=== PATIENT | female | born 1950 | race Caucasian/White ===

== ENCOUNTER → 2016-05-15 | Outpatient (CLI) | payer MEDICARE, BC ==
--- NOTE | 2016-05-15 11:55 | RADRPT ---
PROCEDURE: XR right knee. CLINICAL INDICATION: Knee pain. TECHNIQUE: AP weightbearing, lateral weight bearing and sunrise views are available for review. COMPARISON: No comparison available FINDINGS: There is a total knee replacement. There is no evidence of loosening of the prosthesis. The osseous structures are normal in mineralization, architecture and alignment No acute fracture or dislocation is seen.No osseous lesions are identified. The soft tissues are unremarkable . IMPRESSION: Unremarkable total knee replacement. RPTAT: HGDB .Maximo Moy MD, Date Time Electronically viewed and signed by .Maximo Moy MD, on 05/15/2016 11:55 .B/
--- NOTE | 2016-05-15 11:56 | RADRPT ---
PROCEDURE: XR right tibia / fibula. CLINICAL INDICATION: Pain. TECHNIQUE: AP and lateral views are available for review. COMPARISON: No comparison available FINDINGS: There is a total knee replacement. There is no evidence of loosening of the prosthesis. The osseous structures are normal in mineralization, architecture and alignment No acute fracture or dislocation is seen.No osseous lesions are identified. The soft tissues are unremarkable . IMPRESSION: Unremarkable total knee replacement. Otherwise unremarkable tibia and fibula RPTAT: HGDB .Maximo Moy MD, Date Time Electronically viewed and signed by .Maximo Moy MD, on 05/15/2016 11:56 .B/
== END | disposition home or self-care (01) ==
LOC: HKI 09:02
PROVIDERS: ATTEND Orthopaedic Surgery
DX: T84.092D Other mechanical complication of internal right knee prosthesis, subsequent encounter (principal); T84.84XD Pain due to internal orthopedic prosthetic devices, implants and grafts, subsequent encounter; M25.561 Pain in right knee; M84.361D Stress fracture, right tibia, subsequent encounter for fracture with routine healing; Z96.651 Presence of right artificial knee joint
CPT/HCPCS: 73562; 73590; G0463

== ENCOUNTER → 2016-08-14 | Outpatient (CLI) | payer MEDICARE, BC | END | disposition home or self-care (01) | LOC: HKI 08:52 | PROVIDERS: ATTEND Orthopaedic Surgery | DX: T84.092A Other mechanical complication of internal right knee prosthesis, initial encounter (principal); T84.84XA Pain due to internal orthopedic prosthetic devices, implants and grafts, initial encounter; Y83.8 Other surgical procedures as the cause of abnormal reaction of the patient, or of later complication, without mention of misadventure at the time of the procedure | CPT/HCPCS: 20610; G0463 ==

== ENCOUNTER → 2016-09-11 | Outpatient (CLI) | payer MEDICARE, BC ==
--- NOTE | 2016-09-11 13:57 | RADRPT ---
PROCEDURE: Limited x-ray of both lower extremities. CLINICAL INDICATION: Bilateral leg pain. TECHNIQUE: Single frontal view of both lower extremities was obtained from the hips to the calves. COMPARISON: Right knee radiographs dated 05/15/2016. FINDINGS: There are mild degenerative changes of the hips with osteophytes noted. There is a right knee total arthroplasty which appears satisfactory. There are moderate degenerative changes of the left knee with osteophytes and joint space narrowing. IMPRESSION: 1. Mild degenerative changes of the hips. 2. Right knee total arthroplasty. 3. Moderate degenerative changes of the left knee. RPTAT: QQ .Jose D Interiano MD, MD Date Time Electronically viewed and signed by .Jose D Interiano MD, MD on 09/11/2016 13:57 .R/
== END | disposition home or self-care (01) ==
LOC: HKI 09:11
PROVIDERS: ATTEND Orthopaedic Surgery
DX: Z01.818 Encounter for other preprocedural examination (principal); T84.092A Other mechanical complication of internal right knee prosthesis, initial encounter; T84.84XA Pain due to internal orthopedic prosthetic devices, implants and grafts, initial encounter; Z96.651 Presence of right artificial knee joint; Y83.8 Other surgical procedures as the cause of abnormal reaction of the patient, or of later complication, without mention of misadventure at the time of the procedure; M25.561 Pain in right knee
CPT/HCPCS: 77073; G0463

== ENCOUNTER 2016-09-17 07:00 | Inpatient (IN) | payer MEDICARE, BC ==
[2016-09-17] VITALS (22 sets, daily range): BP systolic 108–162; BP diastolic 60–85; PULSE 58–82; RESP 8–20; Ht 170.2 cm; Wt 94.0 kg
[~2016-09-17] VITALS: Ht 170.2 cm; Wt 94.0 kg
[2016-09-17] MEDS ORDERED: CELECOXIB 400 MG PO X1 DOSE PO ONE (11:00)
[2016-09-17] MEDS ORDERED: TRANEXAMIC ACID in SOD CHLORIDE 0.9% 100 ML FOR INTRAOP IVPB ONE (11:00)
[2016-09-17] MEDS ORDERED: BUPIVACAINE LIPOSOME/PF 266 MG/20 ML VIAL INFIL ONE (11:00)
[2016-09-17] MEDS ORDERED: traMADOL 50 MG TAB X 1 DOSE PO ONE (11:00)
[2016-09-17] MEDS ORDERED: LACTATED RINGER'S 1,000 ML IV SCH (11:00)
[2016-09-17] MEDS ORDERED: PREGABALIN 300 MG PO X1 PO ONE (11:00)
[2016-09-17] MEDS ORDERED: TRANEXAMIC ACID in SOD CHLORIDE 0.9% 100 ML ON CALL TO OR IV ONE (11:00)
[2016-09-17] MEDS ORDERED: CEFAZOLIN 2GM/50 ML (PMX) 50 ML X1 BEFORE INCISION IVPB ONE (11:00)
[2016-09-17] MEDS ORDERED: oxyCODONE (CR) 10 MG TAB [oxyCONTIN] X1 DOSE PO ONE (11:30)
[2016-09-17] MEDS: traMADol 50 MG TAB PO SCH ×2 (12:00→18:00)
[2016-09-17] MEDS ORDERED: EXPAREL NOTE (BUPIVICAINE LIPOSOMAL) XX SCH (12:30)
[2016-09-17] MEDS ORDERED: PAIN COCKTAIL - VANCOMYCIN IRR ONE ×7 (12:30)
--- NOTE | 2016-09-17 12:57 | HPN ---
Date/Time of Note Date/Time of Note DATE: 09/17/16 TIME: 12:57 Interval H&P Admission Note Pt. seen H&P reviewed: No system changes No changes from H&P on 09/08/16 by BRYANT Whitney MD September 17, 2016 12:57
[2016-09-17] MEDS ORDERED: MIDAZOLAM 1 MG/ML 2 ML INJ ONE (13:18)
[2016-09-17] MEDS ORDERED: morphine SULFATE/PF (10 MG/10 ML) INJ ONE (13:18)
[2016-09-17] MEDS ORDERED: POLYMYXIN B 500000 UNIT INJ ONE (13:22)
[2016-09-17] MEDS ORDERED: TOBRAMYCIN 1.2 GM POWDER ONE (13:23)
[2016-09-17] MEDS ORDERED: BACITRACIN 50000 UNITS INJ ONE (13:29)
[2016-09-17] MEDS ORDERED: hydrALAzine 20 MG INJ IV PRN ×2 (14:00→19:00)
[2016-09-17] MEDS ORDERED: ONDANSETRON 4 MG INJ IV PRN ×3 (14:00→19:00)
[2016-09-17] MEDS ORDERED: NALOXONE (0.4 MG/ML) INJ IV PRN (14:00)
[2016-09-17] MEDS ORDERED: DIPHENHYDRAMINE 50 MG INJ IV PRN ×2 (14:00→19:00)
[2016-09-17] MEDS ORDERED: LABETALOL HCL 20MG INJ IV PRN ×2 (14:00→19:00)
[2016-09-17] MEDS ORDERED: FENTAnyl 50 MCG/ML VIAL IV PRN ×2 (14:00→19:00)
[2016-09-17] MEDS: VANCOMYCIN 1 GM INJ ONE ×2 (14:55→15:22)
[2016-09-17] MEDS ORDERED: MINERAL OIL LIGHT 10 ML VIAL ONE (15:08)
--- NOTE | 2016-09-17 17:02 | RADRPT ---
PROCEDURE: Intraoperative imaging of the right knee with fluoroscopy. CLINICAL INDICATION: Right knee pain. Intraoperative. TECHNIQUE: 9 images of the right knee were obtained in the operating room with an image intensifie r. No radiologist was in attendance. 0.3 minutes of fluoroscopy time was used. COMPARISON: 09/11/2016. FINDINGS: Images demonstrate revision of the right knee total arthroplasty. IMPRESSION: 1. Intraoperative imaging of the right knee. RPTAT: QQ .Jose D Interiano MD, MD Date Time Electronically viewed and signed by .Jose D Interiano MD, MD on 09/17/2016 17:02 .R/
[2016-09-17] MEDS ORDERED: CEFAZOLIN 1 GM INJ ONE (17:05)
[2016-09-17] MEDS ORDERED: PROPOFOL 20 ML ONE (17:05)
[2016-09-17] MEDS ORDERED: ROCURONIUM 50 MG INJ ONE (17:05)
[2016-09-17] MEDS ORDERED: LIDOCAINE 2% (SDV) 5 ML INJ ONE (17:05)
[2016-09-17] MEDS ORDERED: NEOSTIGMINE 3 MG/3 ML SYRINGE ONE (17:06)
[2016-09-17] MEDS ORDERED: GLYCOPYRROLATE 0.4 MG INJ ONE (17:06)
[2016-09-17] MEDS ORDERED: ONDANSETRON 4 MG INJ ONE (17:10)
[2016-09-17] MEDS ORDERED: DIPHENHYDRAMINE 25 MG CAP PO PRN (17:30)
[2016-09-17] MEDS ORDERED: oxyCODONE 5 MG TAB PO PRN (17:30)
[2016-09-17] MEDS ORDERED: ASPIRIN (EC) 325 MG TAB PO ONE (17:30)
[2016-09-17] MEDS ORDERED: BISACODYL 10 MG SUPP PR PRN (17:30)
[2016-09-17] MEDS ORDERED: NACL 0.9% 3 ML SYG IV SCH (17:30)
[2016-09-17] MEDS ORDERED: MAGNESIUM HYDROXIDE 30ML CUP PO PRN (17:30)
[2016-09-17] MEDS ORDERED: NA PHOSPHATE/BIPHOS 133 ML ENEMA PR PRN (17:30)
--- NOTE | 2016-09-17 17:30 | OPR ---
Date/Time of Note Date/Time of Note DATE: 09/17/16 TIME: 17:29 Operative Report Free Text/Dictation Dictation # [id number] Procedure Date: September 17, 2016 Preoperative Diagnosis Mechanical complications Right TKA Postoperative Diagnosis Same Operation Performed Revision Right TKA Surgeon: BRYANT MONROY MD neurosurgical physician assistant: HAMZAH SALINAS PA-C Anesthesia: general, spinal Anesthesiologist: OVIDIO VAUGHN MD Tourniquet Time: 112 minutes Estimated Blood Loss: 50 - 100 ml's Specimens Aerobic and anaerobic cultures x 2 Tubes/Drains Hemovac x 1 Complications: None Pt Condition Post Procedure: stable Disposition: PACU BRYANT MONROY MD September 17, 2016 17:30
[2016-09-17 17:47] LABS: HEMATOCRIT 33.8 % (37.0-47.0); HEMOGLOBIN 11.2 g/dl (12.0-16.0)
[2016-09-17] MEDS: CEFAZOLIN 2 GM/50 ML (PMX) 50 ML IVPB SCH (17:55)
[2016-09-17] MEDS ORDERED: ALPRAZOLAM 0.5 MG TAB PO PRN (18:00)
--- NOTE | 2016-09-17 18:04 | CONS ---
DATE OF ADMISSION: 09/17/2016 DATE OF CONSULTATION: 09/17/2016 POSTOPERATIVE MEDICAL CONSULTATIVE NOTE Thank you very much for allowing me to evaluate the above patient who just underwent total right kne e revision. HISTORICAL EVENTS: As you well know, she did have a total knee replacement 1 year ago and subsequen t to this ended up with any stress fracture and now requiring surgery for alignment and increasing p ain. In recovery, she is comfortable without cough, wheezing, shortness of breath, nausea, vomiting , abdominal or chest pain. PAST MEDICAL HISTORY INCLUDES: 1. Ankylosing spondylitis. 2. History of plantar fasciitis. 3. History of hiatal hernia. 4. History of Graves' disease 5. History of colon polyps 6. vitamin D deficiency. 7. Hypertension. 8. Right knee arthroscopic surgery 08/2012. 9. 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 section x2 11. Arthroscopic surgery involving her right shoulder. SOCIAL HISTORY: nursing secretary, occasionally drinks alcohol, does not smoke. MEDICATIONS: 1. Xanax 0.5 b.i.d. p.r.n. 2. Prilosec 20 mg per day. 3. Chlorthalidone 25 mg per day. ALLERGIES: NONE. PHYSICAL EXAMINATION: GENERAL: Overweight female in no acute distress. VITAL SIGNS: BP 122/80, pulse 70, respirations are 20, she was afebrile. EYES: Extraocular muscles were full. NOSE, MOUTH, AND THROAT: Normal. NECK: Supple. There was no jugular venous distention, thyroid enlargement or adenopathy. LUNGS: Clear. HEART: Rhythm regular, no murmur. No third or fourth sound. ABDOMEN: Nontender. Liver and spleen were not palpable. No masses or tenderness were noted. EXTREMITIES: No edema. NEUROLOGIC: No lateralizing weakness. IMPRESSION: 1. Stable postop right knee revision. 2. History of hypertension, blood pressure will be monitored. No need for thiazide diuretic now. 3. Will evaluate daily for signs and symptoms of thromboembolic disease, despite appropriate decisi on deep venous thrombosis prophylaxis. 4. Anxiety. This will be monitored and will give Xanax as needed b.i.d. 0.5 mg p.r.n. Dictated By: CHAI FRYE/YUMI Conf#: [id number] DID#: [id number]
[2016-09-17 18:13] LABS: CALCIUM 8.2 mg/dl (8.4-10.2); CREATININE 0.84 mg/dl (0.44-1.00); POTASSIUM 2.9 mmol/L (3.5-5.1)
[2016-09-17] MEDS ORDERED: POTASSIUM CHLORIDE (SR) 20 MEQ TAB PO STA (18:50)
--- NOTE | 2016-09-17 18:52 | RADRPT ---
PROCEDURE: XR Knee. CLINICAL INDICATION: Right knee pain. Postoperative evaluation TECHNIQUE: 3 views of the right knee were obtained. The images reviewed on a PACS workstation. COMPARISON: 09/11/2016 FINDINGS: A right total knee arthroplasty is seen. The femoral and tibial arthroplasty stems are increased in length compared to the prior examination. A drain is seen with skin otto in place. Multiple ra diopaque beads are seen in the suprapatellar bursa. No acute fracture or dislocation is seen. IMPRESSION: Right total knee arthroplasty with acute postoperative changes as described above. RPTAT: HPNM Physician Haley Date Time Electronically viewed and signed by Physician Haley on 09/17/2016 18:51 /
[2016-09-17] MEDS: LACTATED RINGER'S 1,000 ML IV SCH (19:02)
--- NOTE | 2016-09-17 19:13 | OPR ---
DATE OF OPERATION: 09/17/2016 PREOPERATIVE DIAGNOSIS: Mechanical complications right total knee arthroplasty. POSTOPERATIVE DIAGNOSIS: Mechanical complications right total knee arthroplasty. OPERATION PERFORMED: Revision right total knee arthroplasty. SURGEON: Bryant Harris MD. FORMING TUBE SELECTOR: MENA Coffey. COMPONENTS USED: DePuy TC3 size 3 femoral component with a +2 five-degree adapter bolt, 12 x 150 mm femoral stem, 8 mm medial distal augment, size 2.5 MBT revision tibial tray with a 47 mm metaphyseal sleeve and a 12 x 75 mm stem, 12.5 mm polyethylene insert. ANESTHESIA: Spinal plus general endotracheal intubation plus periarticular injection. ANESTHESIOLOGIST: Dr. Harris. TOURNIQUET TIME: 112 minutes. ESTIMATED BLOOD LOSS: 50 mL. INTRAVENOUS FLUIDS: 1800 mL crystalloid. SPECIMENS: Aerobic and anaerobic culture of joint fluid x2. DRAINS: Hemovac x1. COMPLICATIONS: None. DISPOSITION: The patient tolerated the procedure well and was taken to the recovery room in stable condition. INDICATIONS: The patient is a 65-year-old woman who previously had a right total knee arthroplasty last year who had persistent pain. Imaging showed malposition components with a Veress femoral component. She complained of the deformity and pain, and I felt that she would require revision. Risks, benefits , alternatives of the procedure were explained in detail to the patient. I explained the risks to include but not be limited to bleeding and possible need for blood transfusion, infection, pain, stiffness, neurovascular injury, possible numbness, weakness, and/or paralysis anywhere from the knee down to the toes, fracture, instability, dislocation, wear and/or loosening of the prosthesis, need for revision at a later date, wound healing problems, blood clots, pulmonary embolism, and anesthetic complications such as heart attack, stroke, GI bleed, pneumonia and/or . Ample time was allowed for the patient to ask questions, all of which were addressed and answered. She understood the risks involved and wished to proceed. Informed consent was signed prior to the procedure. DESCRIPTION OF PROCEDURE: The right knee was initialed with a marking pen in the preoperative holding area to identify the correct operative site. The patient was then brought to the operating room and transferred from the [facility] to the operating table where she was administered a spinal anesthetic and then anesthetized and intubated. Vieyra catheter was placed. Timeout was performed to confirm the right side was the correct operative site. She was given 1 gram of intravenous vancomycin and 2 grams of intravenous Ancef within 1 hour prior to the incision. A tourniquet was placed on right proximal thigh. The right knee and lower extremity were prepped and draped in the usual sterile fashion. The right lower extremity was elevated and exsanguinated with the Esmarch tourniquet, and the proximal thigh tourniquet was inflated to 300 mmHg. The knee was flexed. The previous midline incision was incised and extended proximally and distally. This was carried down to subcutaneous tissue and fat with sharp dissection. Limited medial and lateral flaps were raised. A medial parapatellar arthrotomy was performed. Synovial fluid was normal in color and consistency and swabbed for aerobic and anaerobic culture x2. The patella was translated laterally and the knee flexed. The polyethylene insert was removed from the tibia. A medial release was performed at the joint line to the mid coronal plane. The femoral and tibial components were well fixed. Osteotomes were used to free up the bone cement interface on the femur which was then able to be removed and the tibia was removed in a similar fashion with osteotomes. The distal femur remained well preserved with intact medial and lateral condyles. The proximal tibia remained in good condition as well. The patellar component appeared well fixed and I decided to leave this alone. At this point , the tibia was subluxed anteriorly. Retractors were placed around the tibia, and I reamed the tibia up to a size 12, getting a good bite and then broached up to a size 47, getting a good bite and sat flush with the proximal tibia. A cleanup osteotomy was made on top of the sleeve with the oscillating saw and the tibia was sized to be a 2.5. The trial 2.5 tibia with an MBT tray with a 47 metaphyseal sleeve trial and a 12 x 75 stem were impacted in the tibia. The extension gap was checked and accommodated the 12.5 spacer block. At this point , the femur was sized to be a 3. The femoral canal was opened, and the PCL had been released. I reamed the femoral canal up to a size 12. The 150 trial stem was placed into position and then the distal cutting block was pinned into place for a 5-degree valgus cut. There was a defect medially that required an 8 mm augment. Laterally, a cleanup osteotomy was made with the oscillating saw. I then placed the knee at 90 degrees and tensed the knee with 2 laminar spreaders and marked the transepicondylar axis which lined up with the tibial cutoff guide, brought up with the knee, flexed it 90 degrees and tensed with 2 lamina spreaders. At this point, the size 3 TC3, 4-in-1 cutting block was pinned into place with a 12.5 spacer block at 90 degrees and pinned in proper rotation which was in line with the line I marked for the transepicondylar axis. Anterior and posterior chamfer cuts were made with the oscillating saw. I then cut out the box for the TC3 and then trialed with a size 3 TC3 femur with a 12 x 150 stem with a +2 five-degree adapter bolt. The 12.5 insert was placed in position. The knee came to full extension. I had to perform an extensive medial release to get the knee to full extension and to be neutral. Upon going to full extension, I could feel a small pop and C-arm imaging showed the tip of the medial epicondyle avulsed off. However, the knee was quite stable. The knee was taken through range of motion with the foot on my abdomen and axial loading. There was no tendency for the knee to flex. Suggest the knee was in full extension. The knee was able to be flexed to 125 degrees with good patellar tracking with no lateral tilt or subluxation. No varus or valgus instability. C-arm imaging showed the components to be in good position. At this point, the trial components were removed. The real components were opened and assembled on the back table. Three bags of cement were mixed with vancomycin mixed into it. Once in the doughy stage, the real components were cemented into place. Please note prior to cementing, the knee had been irrigated with antibiotic saline pulsatile lavage. The knee was held in full extension with a 12.5 insert. Once the cement was completely hardened, the trial liner was removed. The real polyethylene insert was opened and placed in the tibia and reduced on the femur. There was good hemostasis. I placed a 6.5 screw in the medial epicondyle tip, but when I tightened this down, the knee wanted to go into varus. I took it out, the knee was stable and came to neutral position. I felt that I would leave this as is as this was serving as the completion of the medial release. At this point, the knee was irrigated with Betadine saline and antibiotic saline pulsatile lavage. Stimulan beads mixed with vancomycin and tobramycin were mixed and placed in the knee joint. A Hemovac drain was placed in the deep portion of the wound and brought out the anterolateral thigh. The arthrotomy was closed with interrupted Ethibond and then a running #2 Stratafix. The subcutaneous layer was irrigated and closed with 2-0 Stratafix, 3-0 Vicryl and otto on the skin. The drain was secured with 3-0 nylon. Sponge and needle counts correct at the end of case. The wound was covered with silver Mepilex and wrapped in sterile cast padding and Ramy wrap and bias dressing. The patient was awakened, extubated, and taken to the recovery room in stable condition. Dictated By: BRYANT ZAVALETA/YUMI Conf#: [id number] DID#: [id number] MTDSindy
[2016-09-17] MEDS: PREGABALIN 50 MG CAP PO SCH (20:19)
[2016-09-17] MEDS ORDERED: TRANEXAMIC ACID 940 MG in SOD CHLORIDE 0.9% 100 ML IVPB ONE ×2 (20:30→23:30)
--- NOTE | 2016-09-17 21:37 | PN ---
Date/Time of Note Date/Time of Note DATE: 09/17/16 TIME: 21:35 Assessment/Plan Lines/Catheters IV Catheter Type (from Nrsg): Saline Lock Assessment/Plan Assessment/Plan Stable in PACU, s/p revision right TKA -continue antibiotics until final culture results -pain meds as needed -ASA/SCDs for DVT prophylaxis -OOB with PT -check AM labs -monitor drain -d/c sr in AM XR of the right knee is pending at this time Subjective 24 Hr Interval Summary Stable in PACU. Drowsy from anesthesia. Denies pain. Moving all extremities. Exam/Review of Systems Vital Signs Vitals Vital Signs Date Time Temp Pulse Resp B/P Pulse Ox O2 Delivery O2 Flow Rate FiO2 09/17/16 21:24 98.2 63 20 137/63 98 09/17/16 20:21 Nasal Cannula 2.0 Exam Free Text/Dictation Hemovac: minimal Dressing dry Incision clean, dry, and intact without redness or drainage Thigh soft 5/5 Quadriceps, Tibialis Anterior, EHL, Gastroc, Soleus, Peroneals Normal sensation Palpable DT/PT, CR <2 sec No distal edema Results Result Diagram: 09/17/16 1736 09/17/16 1736 HAMZAH SALINAS PA-C September 17, 2016 21:36
--- NOTE | 2016-09-17 21:42 | PDOCDIS ---
Discharge Instructions DIAGNOSIS Discharge Diagnosis: s/p revision right TKA CONDITION Patient Condition: Good HOME CARE INSTRUCTIONS: Diet Instructions: Regular ACTIVITY: Activity Restrictions: Slowly Increase Activity Rest between Activity Avoid heavy lifting Do not operate Machinery Do not operate Power Tool Avoid Heavy Housework Keep Limb Elevated FOLLOW UP/APPOINTMENTS Appointments follow up in the office on 09/30/16 OTHER ORDERS: Other Orders: S/P revision TKA Physical Therapy: Three times per week at home x 2 weeks Daily in Rehab/SNF WB STATUS: WBAT 1. Strengthening exercises for both upper and un-operated lower extremities. 2. Gait training with front wheeled walker 3. Active range of motion exercises to operative knee. 4. When not working on knee range of motion exercises, distal towel roll under operative ankle/distal calf to promote full extension. 5. DO NOT PUT ANYTHING BEHIND OPERATIVE KNEE!!! 6. Quadriceps and hamstring strengthening. 7. May switch to cane in contra lateral hand 6 weeks after surgery. 8. Physical Therapy can open case if nursing is not available. 9. Use Ice Machine as instructed from date of surgery while at rest 3X/day. 10. Patient requires mobile SCDs to reduce risk of developing DVT following TKA. Patient will use the mobile SCDs for 30 days postoperatively. Bathing assistance by home health aide twice weekly if Medicare patient. Occupational Therapy: Evaluation for assistive devices and ADL training. Wound Care: Keep incision dry & covered with Tegaderm until first visit with Dr. Harris Anticoagulation Orders: Enteric Coated Aspirin 325 mg po bid x 6 weeks from date of surgery Follow-up:Call for an appointment with Dr. Harris in 1 week after discharged from hospital at DME Orders: DONYA, 3-in-1 Commode, Polar ice machine, Mobile SCDs HAMZAH SALINAS PA-C September 17, 2016 21:42
[2016-09-17] MEDS ORDERED: PREG50CA PO (21:43)
[2016-09-17] MEDS ORDERED: PANT40TA4 PO (21:43)
[2016-09-17] MEDS ORDERED: OXYC-481 PO (21:43)
[2016-09-17] MEDS ORDERED: ASPI325T32 PO (21:43)
[2016-09-17] MEDS ORDERED: TRAM50TA2 PO (21:43)
[2016-09-17] MEDS: DOCUSATE SODIUM 100 MG CAP PO SCH (21:55)
[2016-09-17] MEDS: PANTOPRAZOLE (EC) 40 MG TAB PO SCH (21:56)
[2016-09-18] MEDS: HYDROmorphONE 1 MG/ML SYG IV PRN (00:22)
[2016-09-18 00:30] VITALS: BP 104/62; PULSE 63; RESP 16
[2016-09-18] MEDS: CEFAZOLIN 2 GM/50 ML (PMX) 50 ML IVPB SCH ×3 (01:21→17:49)
[2016-09-18] MEDS: LACTATED RINGER'S 1,000 ML IV SCH ×3 (01:21→16:52)
[2016-09-18 05:26] LABS: HEMOGLOBIN 10.9 g/dl (12.0-16.0)
[2016-09-18] MEDS: PANTOPRAZOLE (EC) 40 MG TAB PO SCH ×2 (05:43→17:48)
[2016-09-18] MEDS: traMADol 50 MG TAB PO SCH ×4 (05:43→17:48)
[2016-09-18 05:49] LABS: CREATININE 0.8 mg/dl (0.44-1.00)
[2016-09-18 05:50] LABS: CALCIUM 8.4 mg/dl (8.4-10.2)
[2016-09-18 07:00] VITALS: BP 121/82; RESP 20
[2016-09-18 08:02] LABS: ADD UMIC YES; URINE BILIRUBIN (Dip) NEGATIVE (NEGATIVE); URINE BLOOD (Dip) 1+ (NEGATIVE); URINE COLOR LT. YELLOW (YELLOW); URINE GLUCOSE (Dip) NEGATIVE (NEGATIVE); URINE KETONES (Dip) NEGATIVE (NEGATIVE); URINE LEUKOCYTE ESTERASE (Dip) NEGATIVE (NEGATIVE); URINE NITRITE (Dip) NEGATIVE (NEGATIVE); URINE TOTAL PROTEIN (Dip) NEGATIVE (NEGATIVE); URINE UROBILINOGEN (Dip) 0.2 E.U./dL (0.1-1.0)
--- NOTE | 2016-09-18 08:08 | CONS ---
Date/Time of Note Date/Time of Note DATE: 09/18/16 TIME: 08:06 Assessment/Plan Assessment/Plan Additional Assessment/Plan 1. Stable postop right knee revision, doing well 2. History of hypertension, now nl 3. Hx Anxiety, asx 4. Labs rev Consultation Date/Type/Reason Admit Date/Time September 17, 2016 at 09:51 Initial Consult Date Detailed Summary Respiratory: No shortness of breath Cardiovascular: No chest pain Gastrointestinal: no complaints Genitourinary: no complaints Musculoskeletal: bone/joint pain (mild right knee pain) Exam/Review of Systems Vital Signs Vitals Vital Signs Date Time Temp Pulse Resp B/P Pulse Ox O2 Delivery O2 Flow Rate FiO2 09/18/16 07:00 98.7 74 20 121/82 99 09/18/16 00:30 Nasal Cannula 2.0 Intake and Output 09/17/16 09/17/16 09/18/16 15:00 23:00 07:00 Intake Total 0 ml 150 ml 1100 ml Output Total 1155 ml 115 ml Balance 0 ml -1005 ml 985 ml Exam Neck: No jvd Respiratory: clear to auscultation Cardiovascular: regular rate and rhythm Gastrointestinal: soft, No tender Extremities: No edema (and no calf tend bilat) Results Result Diagram: 09/18/16 0435 09/18/16 0435 Results 24 hrs Laboratory Tests Test 09/17/16 17:36 09/17/16 22:00 09/18/16 04:35 09/18/16 06:20 Hemoglobin 11.2 L 10.9 L Hematocrit 33.8 L 34.0 L Sodium Level 139 140 Potassium Level 2.9 *L 3.9 4.0 Chloride Level 102 100 Carbon Dioxide Level 27 29 Anion Gap 13 15 Blood Urea Nitrogen 16 15 Creatinine 0.84 0.80 Glucose Level 132 104 Calcium Level 8.2 L 8.4 Urine Color LT. YELLOW Urine Clarity CLEAR Urine pH 6.0 Urine Specific [place] 1.020 Urine Ketones NEGATIVE Urine Nitrite NEGATIVE Urine Bilirubin NEGATIVE Urine Urobilinogen 0.2 E.U./dL Urine Leukocyte Esterase NEGATIVE Urine Microscopic RBC Pending Urine Microscopic WBC Pending Urine Hemoglobin 1+ H Urine Glucose NEGATIVE Urine Total Protein NEGATIVE Medications Medications Current Medications Miscellaneous Information 1 ea 1 ea NOTE XX ; Start 09/17/16 at 12:30; Stop at 12:29 Lactated Ringer's (Lr) 1,000 ml @ 125 mls/hr Q8H IV Last administered on 05:08; Admin Dose 125 MLS/HR; Start 09/17/16 at 17:22 Tramadol HCl (Ultram) 50 mg Q6 PO Last administered on 09/18/16 05:43; Admin Dose 50 MG; Start 09/17/16 at 12:00; Stop 09/20/16 at 11:59 Oxycodone HCl (Roxicodone) 5 mg Q4H PRN PO PAIN LEVEL 1-3; Start 09/17/16 at 17 :30; Status UNV Oxycodone HCl (Roxicodone) 10 mg Q4H PRN PO PAIN LEVEL 4-7; Start 09/17/16 at 17:30; Status UNV Hydromorphone HCl 1 mg 1 mg Q3H PRN IV PAIN LEVEL 8-10 Last administered on 00:22; Admin Dose 1 MG; Start 09/17/16 at 17:30 Cefazolin Sodium/ Dextrose (Ancef 2 Gm/50 ml (Pmx)) 50 ml @ 100 mls/hr Q8H IVPB Last administered on 09/18/16 01:21; Admin Dose 100 MLS/HR; Start at 17:30; Stop 09/20/16 at 09:59 Ondansetron HCl (Zofran Inj) 4 mg Q6H PRN IV NAUSEA AND/OR VOMITING; Start at 17:30 Bisacodyl (Dulcolax Supp) 10 mg Q12H PRN GA CONSTIPATION; Start 09/17/16 at 17: 30 Magnesium Hydroxide (Milk Of Mag) 30 ml BID PRN PO CONSTIPATION; Start at 17:30 Sodium Biphosphate/ Sodium Phosphate (Fleet Enema) 133 ml DAILY PRN GA CONSTIPATION; Start 09/17/16 at 17:30 Docusate Sodium (Colace) 100 mg BID PO Last administered on 09/17/16 21:55; Admin Dose 100 MG; Start 09/17/16 at 21:00 Diphenhydramine HCl (Benadryl) 25 mg Q6H PRN PO PRURITUS; Start 09/17/16 at 17: 30 Aspirin (Ecotrin) 325 mg BID PO ; Start 09/18/16 at 09:00 Pantoprazole (Protonix Tab) 40 mg BID@ PO Last administered on 09/18/16 05:43; Admin Dose 40 MG; Start 09/17/16 at 18:00 Pregabalin (Lyrica) 50 mg BID PO Last administered on 09/17/16 20:19; Admin Dose 50 MG; Start 09/17/16 at 21:00 Alprazolam (Xanax) 0.5 mg Q12H PRN PO ANXIETY; Start 09/17/16 at 18:00 Clonidine (Catapres) 0.1 mg TID PO Last administered on 09/17/16 21:56; Admin Dose 0.1 MG; Start 09/17/16 at 21:00 CHAI VIEYRA MD September 18, 2016 08:08
--- NOTE | 2016-09-18 08:42 | PN ---
Date/Time of Note Date/Time of Note DATE: 09/18/16 TIME: 08:41 Assessment/Plan Lines/Catheters IV Catheter Type (from Nrsg): Peripheral IV Assessment/Plan Assessment/Plan Stable POD #1, s/p revision right TKA -continue Ancef until final cultures results -pain meds as needed -ASA/SCDs for DVT prophylaxis -OOB with PT -check AM labs -monitor drain -d/c planning. Will plan to go home upon discharge Subjective 24 Hr Interval Summary No acute overnight events. Denies significant pain. H&H stable. Did not start PT yesterday. VSS, afebrile. Would like to go home upon discharge. Exam/Review of Systems Vital Signs Vitals Vital Signs Date Time Temp Pulse Resp B/P Pulse Ox O2 Delivery O2 Flow Rate FiO2 09/18/16 07:00 98.7 74 20 121/82 99 09/18/16 00:30 Nasal Cannula 2.0 Intake and Output 09/17/16 09/17/16 09/18/16 15:00 23:00 07:00 Intake Total 0 ml 150 ml 1100 ml Output Total 1155 ml 115 ml Balance 0 ml -1005 ml 985 ml Exam Free Text/Dictation Hemovac: 220cc Dressing dry Incision clean, dry, and intact without redness or drainage Thigh soft 5/5 Quadriceps, Tibialis Anterior, EHL, Gastroc, Soleus, Peroneals Normal sensation Palpable DT/PT, CR <2 sec No distal edema Results Result Diagram: 09/18/16 0435 09/18/16 0435 HAMZAH SALINAS PA-C September 18, 2016 08:42
[2016-09-18] MEDS: DOCUSATE SODIUM 100 MG CAP PO SCH ×2 (08:43→21:16)
[2016-09-18] MEDS: PREGABALIN 50 MG CAP PO SCH ×2 (08:43→21:16)
[2016-09-18] MEDS: ASPIRIN (EC) 325 MG TAB PO SCH ×2 (08:43→21:16)
[2016-09-18] MEDS: oxyCODONE 5 MG TAB PO PRN ×3 (11:34→21:16)
[2016-09-18 19:17] VITALS: BP 120/64; RESP 20
[2016-09-19] MEDS: traMADol 50 MG TAB PO SCH ×4 (00:30→18:05)
[2016-09-19] MEDS: LACTATED RINGER'S 1,000 ML IV SCH ×2 (01:22→10:17)
[2016-09-19] MEDS: CEFAZOLIN 2 GM/50 ML (PMX) 50 ML IVPB SCH ×3 (01:44→17:14)
[2016-09-19] MEDS: oxyCODONE 5 MG TAB PO PRN ×2 (02:48→17:14)
[2016-09-19 05:10] LABS: HEMATOCRIT 31.5 % (37.0-47.0); HEMOGLOBIN 10.4 g/dl (12.0-16.0)
[2016-09-19] MEDS: PANTOPRAZOLE (EC) 40 MG TAB PO SCH ×2 (05:44→18:05)
[2016-09-19 05:52] LABS: CALCIUM 8.6 mg/dl (8.4-10.2); CREATININE 0.82 mg/dl (0.44-1.00); POTASSIUM 3.4 mmol/L (3.5-5.1)
[2016-09-19] MEDS: HYDROmorphONE 1 MG/ML SYG IV PRN ×3 (06:02→21:23)
[2016-09-19 07:00] VITALS: BP 135/71; RESP 20
[2016-09-19] MEDS: ASPIRIN (EC) 325 MG TAB PO SCH ×2 (08:40→21:23)
[2016-09-19] MEDS: DOCUSATE SODIUM 100 MG CAP PO SCH ×2 (08:41→21:23)
[2016-09-19] MEDS: PREGABALIN 50 MG CAP PO SCH ×2 (08:41→21:22)
--- NOTE | 2016-09-19 09:17 | PN ---
Date/Time of Note Date/Time of Note DATE: 09/19/16 TIME: 09:15 Assessment/Plan Lines/Catheters IV Catheter Type (from Nrsg): Peripheral IV Assessment/Plan Assessment/Plan POD # 2. Stable. -Drain removed -OOB with PT -Encourage PO pain meds -E.C. ASA 325 mg po bid plus bilateral LE SCDs for DVT prophylaxis -Continue Ancef until cultures final Subjective 24 Hr Interval Summary Having some more pain today. Walked with PT yesterday. Exam/Review of Systems Vital Signs Vitals Vital Signs Date Time Temp Pulse Resp B/P Pulse Ox O2 Delivery O2 Flow Rate FiO2 09/19/16 07:00 98.8 73 20 135/71 94 09/18/16 00:30 Nasal Cannula 2.0 Intake and Output 09/18/16 09/18/16 09/19/16 15:00 23:00 07:00 Intake Total 50 ml 2575 ml 1243 ml Output Total 880 ml 0 ml Balance 50 ml 1695 ml 1243 ml Exam Free Text/Dictation Hemovac: 80 cc Dressing dry Incision clean, dry, and intact without redness or drainage 09/04 Tibialis Anterior, EHL, Gastroc Soleus, Peroneals Normal sensation Palpable DP/PT, CR < 2 Sec No distal edema Cultures: No growth x 24 hours Results Result Diagram: 09/19/16 0434 09/19/16 0434 BRYANT MONROY MD September 19, 2016 09:17
[2016-09-19] MEDS ORDERED: POTASSIUM CHLORIDE (SR) 20 MEQ TAB PO STA (10:28)
[2016-09-19 14:00] VITALS: BP 124/72; PULSE 70; RESP 17
--- NOTE | 2016-09-19 15:54 | CONS ---
Date/Time of Note Date/Time of Note DATE: 09/19/16 TIME: 15:52 Consult Date/Type/Reason Admit Date/Time September 17, 2016 at 09:51 Initial Consult Date 09/17/2016 Type of Consultation: Medicine Reason for Consultation HTN, Graves Subjective Doing well. Denies fevers, chills, nausea, vomiting, diarrhea, chest pain, sob, cough. Does endorse constipation Objective Vital Signs Date Time Temp Pulse Resp B/P Pulse Ox O2 Delivery O2 Flow Rate FiO2 09/19/16 07:00 98.8 73 20 135/71 94 09/18/16 00:30 Nasal Cannula 2.0 Intake and Output 09/18/16 09/18/16 09/19/16 15:00 23:00 07:00 Intake Total 50 ml 2575 ml 1243 ml Output Total 880 ml 0 ml Balance 50 ml 1695 ml 1243 ml Results/Medications Result Diagram: 09/19/16 0434 09/19/16 0434 Results 24 hrs Laboratory Tests Test 09/19/16 04:34 Hemoglobin 10.4 L Hematocrit 31.5 L Sodium Level 133 L Potassium Level 3.4 L Chloride Level 99 Carbon Dioxide Level 31 Anion Gap 6 #L Blood Urea Nitrogen 14 Creatinine 0.82 Glucose Level 108 Calcium Level 8.6 Medications Current Medications Miscellaneous Information 1 ea NOTE XX ; Start 09/17/16 at 12:30; Stop 09/21/16 at 12:29 Tramadol HCl (Ultram) 50 mg Q6 PO Last administered on 09/19/16 12:08; Admin Dose 50 MG; Start 09/17/16 at 12:00; Stop 09/20/16 at 11:59 Oxycodone HCl (Roxicodone) 5 mg Q4H PRN PO PAIN LEVEL 1-3; Start 09/17/16 at 17 :30 Oxycodone HCl (Roxicodone) 10 mg Q4H PRN PO PAIN LEVEL 4-7 Last administered on 09/19/16 02:48; Admin Dose 10 MG; Start 09/17/16 at 17:30 Hydromorphone HCl 1 mg 1 mg Q3H PRN IV PAIN LEVEL 8-10 Last administered on 12:49; Admin Dose 1 MG; Start 09/17/16 at 17:30 Cefazolin Sodium/ Dextrose (Ancef 2 Gm/50 ml (Pmx)) 50 ml @ 100 mls/hr Q8H IVPB Last administered on 09/19/16 10:16; Admin Dose 100 MLS/HR; Start at 17:30; Stop 09/20/16 at 09:59 Ondansetron HCl (Zofran Inj) 4 mg Q6H PRN IV NAUSEA AND/OR VOMITING; Start at 17:30 Bisacodyl (Dulcolax Supp) 10 mg Q12H PRN CO CONSTIPATION; Start 09/17/16 at 17: 30 Magnesium Hydroxide (Milk Of Mag) 30 ml BID PRN PO CONSTIPATION; Start at 17:30 Sodium Biphosphate/ Sodium Phosphate (Fleet Enema) 133 ml DAILY PRN CO CONSTIPATION; Start 09/17/16 at 17:30 Docusate Sodium (Colace) 100 mg BID PO Last administered on 09/19/16 08:41; Admin Dose 100 MG; Start 09/17/16 at 21:00 Diphenhydramine HCl (Benadryl) 25 mg Q6H PRN PO PRURITUS; Start 09/17/16 at 17: 30 Aspirin (Ecotrin) 325 mg BID PO Last administered on 09/19/16 08:40; Admin Dose 325 MG; Start 09/18/16 at 09:00 Pantoprazole (Protonix Tab) 40 mg BID@06,18 PO Last administered on 09/19/16 05:44; Admin Dose 40 MG; Start 09/17/16 at 18:00 Pregabalin (Lyrica) 50 mg BID PO Last administered on 09/19/16 08:41; Admin Dose 50 MG; Start 09/17/16 at 21:00 Alprazolam (Xanax) 0.5 mg Q12H PRN PO ANXIETY; Start 09/17/16 at 18:00 Clonidine (Catapres) 0.1 mg TID PO Last administered on 09/19/16 08:41; Admin Dose 0.1 MG; Start 09/17/16 at 21:00 Assessment/Plan Chief Complaint/Hosp Course 65 y/o female pmh HTN, Graves s/p 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 Problems: Additional Assessment/Plan A/P: #s/p R TKA revision -ASA -pain meds -PT #HTN -clonidine per home regimen #constipation -will add daily miralax. CARISSA THAPA MD September 19, 2016 15:54
[2016-09-19 19:28] VITALS: BP 118/59; RESP 18
[2016-09-19] MEDS: POLYETHYLENE GLYCOL 17 GM PACKET PO SCH (21:23)
[2016-09-20] MEDS: CEFAZOLIN 2 GM/50 ML (PMX) 50 ML IVPB SCH ×2 (00:59→09:05)
[2016-09-20] MEDS: traMADol 50 MG TAB PO SCH ×2 (00:59→06:16)
[2016-09-20 05:41] LABS: HEMATOCRIT 30.5 % (37.0-47.0); HEMOGLOBIN 9.9 g/dl (12.0-16.0)
[2016-09-20 05:59] LABS: POTASSIUM 3.6 mmol/L (3.5-5.1)
[2016-09-20 06:02] LABS: CREATININE 0.79 mg/dl (0.44-1.00)
[2016-09-20 06:03] LABS: CALCIUM 8.7 mg/dl (8.4-10.2)
[2016-09-20] MEDS: PANTOPRAZOLE (EC) 40 MG TAB PO SCH (06:16)
[2016-09-20 08:07] VITALS: BP 129/68; RESP 19
[2016-09-20] MEDS: PREGABALIN 50 MG CAP PO SCH (08:10)
[2016-09-20] MEDS: oxyCODONE 5 MG TAB PO PRN (08:10)
[2016-09-20] MEDS: ASPIRIN (EC) 325 MG TAB PO SCH (09:05)
[2016-09-20] MEDS: DOCUSATE SODIUM 100 MG CAP PO SCH (09:05)
[2016-09-20] MEDS: POLYETHYLENE GLYCOL 17 GM PACKET PO SCH (09:05)
--- NOTE | 2016-09-20 12:03 | PN ---
Date/Time of Note Date/Time of Note DATE: 09/20/16 TIME: 12:01 Assessment/Plan Lines/Catheters IV Catheter Type (from Nrsg): Saline Lock Assessment/Plan Assessment/Plan POD # 3. Stable. -D/C to home -Pain meds -E.C. ASA 325 mg po bid plus bilateral SCDs -Home PT -F/u with me in 1 week Subjective 24 Hr Interval Summary Feels well. Less pain. Wants to go home today. Exam/Review of Systems Vital Signs Vitals Vital Signs Date Time Temp Pulse Resp B/P Pulse Ox O2 Delivery O2 Flow Rate FiO2 09/20/16 08:07 98.0 80 19 129/68 98 09/19/16 14:00 Room Air 09/18/16 00:30 2.0 Intake and Output 09/19/16 09/19/16 09/20/16 15:00 23:00 07:00 Intake Total 250 ml 1450 ml 50 ml Output Total 1000 ml Balance 250 ml 450 ml 50 ml Exam Free Text/Dictation Dressing dry Incision clean, dry, and intact without redness or drainage 09/04 Tibialis Anterior, EHL, Gastroc Soleus, Peroneals Normal sensation Palpable DP/PT, CR < 2 Sec No distal edema Knee cultures: No growth (Final) Results Result Diagram: 09/20/16 0423 09/20/16 0423 BRYANT MONROY MD September 20, 2016 12:02
[2016-09-20] MEDS ORDERED: traMADol 50 MG TAB PO SCH (12:43)
--- NOTE | 2016-09-20 14:16 | CONS ---
Date/Time of Note Date/Time of Note DATE: 09/20/16 TIME: 14:14 Consult Date/Type/Reason Admit Date/Time September 17, 2016 at 09:51 Initial Consult Date 09/17/2016 Type of Consultation: Medicine Reason for Consultation HTN, Graves Subjective Doing well. Denies fevers, chills, nausea, vomiting, diarrhea, chest pain, sob, cough. Does endorse constipation Objective Vital Signs Date Time Temp Pulse Resp B/P Pulse Ox O2 Delivery O2 Flow Rate FiO2 09/20/16 08:07 98.0 80 19 129/68 98 09/19/16 14:00 Room Air 09/18/16 00:30 2.0 Intake and Output 09/19/16 09/19/16 09/20/16 15:00 23:00 07:00 Intake Total 250 ml 1450 ml 50 ml Output Total 1000 ml Balance 250 ml 450 ml 50 ml Exam Gen-NAD HEENT-op clear, mmm CV-rrr, nml s1/s2, no m/r/g Pulm-CTAB, no w/r/r Abd-soft, nt/ND, +BS ext-no c/c/e Results/Medications Result Diagram: 09/20/16 0423 09/20/16 0423 Results 24 hrs Laboratory Tests Test 09/20/16 04:23 Hemoglobin 9.9 L Hematocrit 30.5 L Sodium Level 138 Potassium Level 3.6 Chloride Level 98 Carbon Dioxide Level 30 Anion Gap 14 # Blood Urea Nitrogen 13 Creatinine 0.79 Glucose Level 94 Calcium Level 8.7 Medications Current Medications Miscellaneous Information 1 ea NOTE XX ; Start 09/17/16 at 12:30; Stop 09/21/16 at 12:29 Oxycodone HCl (Roxicodone) 5 mg Q4H PRN PO PAIN LEVEL 1-3; Start 09/17/16 at 17 :30 Oxycodone HCl (Roxicodone) 10 mg Q4H PRN PO PAIN LEVEL 4-7 Last administered on 09/20/16 08:10; Admin Dose 10 MG; Start 09/17/16 at 17:30 Hydromorphone HCl (Dilaudid) 1 mg Q3H PRN IV PAIN LEVEL 8-10 Last administered on 09/19/16 21:23; Admin Dose 1 MG; Start 09/17/16 at 17:30 Ondansetron HCl (Zofran Inj) 4 mg Q6H PRN IV NAUSEA AND/OR VOMITING; Start at 17:30 Bisacodyl (Dulcolax Supp) 10 mg Q12H PRN IN CONSTIPATION; Start 09/17/16 at 17: 30 Magnesium Hydroxide (Milk Of Mag) 30 ml BID PRN PO CONSTIPATION; Start at 17:30 Sodium Biphosphate/ Sodium Phosphate (Fleet Enema) 133 ml DAILY PRN IN CONSTIPATION; Start 09/17/16 at 17:30 Docusate Sodium (Colace) 100 mg BID PO Last administered on 09/20/16 09:05; Admin Dose 100 MG; Start 09/17/16 at 21:00 Diphenhydramine HCl (Benadryl) 25 mg Q6H PRN PO PRURITUS; Start 09/17/16 at 17: 30 Aspirin (Ecotrin) 325 mg BID PO Last administered on 09/20/16 09:05; Admin Dose 325 MG; Start 09/18/16 at 09:00 Pantoprazole (Protonix Tab) 40 mg BID@18 PO Last administered on 09/20/16 06:16; Admin Dose 40 MG; Start 09/17/16 at 18:00 Pregabalin (Lyrica) 50 mg BID PO Last administered on 09/20/16 08:10; Admin Dose 50 MG; Start 09/17/16 at 21:00 Alprazolam (Xanax) 0.5 mg Q12H PRN PO ANXIETY; Start 09/17/16 at 18:00 Clonidine (Catapres) 0.1 mg TID PO Last administered on 09/20/16 12:43; Admin Dose 0.1 MG; Start 09/17/16 at 21:00 Polyethylene Glycol (Miralax) 17 gm BID PO Last administered on 09/20/16 09:05 ; Admin Dose 17 GM; Start 09/19/16 at 21:00 Assessment/Plan Chief Complaint/Hosp Course 65 y/o female pmh HTN, Graves s/p 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 Problems: Additional Assessment/Plan A/P: #s/p R TKA revision -ASA -pain meds -PT #HTN -clonidine per home regimen #constipation-resolved -continue bowel regimen Dispo: medically cleared for discharge home with PT now CARISSA THAPA MD September 20, 2016 14:16
--- NOTE | 2016-09-20 18:04 | DS ---
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 DISCHARGE DIAGNOSIS: Status post revision right total knee arthroplasty. HOSPITAL COURSE: Patient was admitted, taken to the operating room where she underwent a revision o f her right total knee arthroplasty. There were no complications. She was taken to the recovery ro om in stable condition. She was given routine perioperative intravenous antibiotics. Pain was cont rolled with oral pain medications. She was continued on intravenous Ancef until cultures from the [facility] were final and negative 72 hours later. She was started on enteric coated aspirin 325 mg twi ce daily for DVT prophylaxis along with sequential compression devices. The drain was removed on po stoperative day 1 and the incision inspected and noted to be clean, dry and intact with no redness o r drainage. She did well with physical therapy, ambulating up and down the halls. By postoperative day #3, she was doing well. She remained afebrile, hemodynamically stable and neurovascularly inta ct. She was ready to be discharged to home. DISCHARGE CONDITION: Good. DISPOSITION: To home. DISCHARGE MEDICATIONS: She will continue with enteric-coated aspirin 325 mg twice daily for DVT pro phylaxis. She will continue with Oxycodone 5 mg 1 to 2 tabs p.o. q.4-6h p.r.n. for pain. For the remainder of the medications, please refer to the medication reconciliation form. DISCHARGE INSTRUCTIONS: She will keep the incision dry. She will continue weightbearing as tolerat ed on the right lower extremity and use a walker for ambulatory support. She will continue with ran ge of motion exercises and distal towel rolls per my usual protocol. FOLLOWUP: She will follow up with me in the office in 1 week. Dictated By: BRYANT ZAVALETA/NTS Conf#: [id number] DID#: [id number]
== END 2016-09-20 13:50 | disposition home health service (06) | DRG 468 ==
LOC: REC 09:51 → MS1 21:02
PROVIDERS: ADMIT Orthopaedic Surgery; ATTEND Orthopaedic Surgery
PROC: 0SPC09Z Removal of Liner from Right Knee Joint, Open Approach (ICD-10-PCS; 2016-09-17)
PROC: 0SPC0JZ Removal of Synthetic Substitute from Right Knee Joint, Open Approach (ICD-10-PCS; 2016-09-17)
PROC: 0SUV09Z Supplement Right Knee Joint, Tibial Surface with Liner, Open Approach (ICD-10-PCS; 2016-09-17)
PROC: 0SRC0J9 Replacement of Right Knee Joint with Synthetic Substitute, Cemented, Open Approach (ICD-10-PCS; principal; 2016-09-17 13:00)
DX: T84.032A Mechanical loosening of internal right knee prosthetic joint, initial encounter (principal); I10 Essential (primary) hypertension; K59.00 Constipation, unspecified; F41.9 Anxiety disorder, unspecified; E66.9 Obesity, unspecified; Z68.32 Body mass index [BMI] 32.0-32.9, adult
CPT/HCPCS: 73560; 80048; 81001; 81003; 84132; 85014; 85018; 86850; 86870; 86900; 86901; 86920; 87070; 87075; 87081; 87086; 88300; 97110; 97116; 97162; 97530; C1776; C1713; C9290; J0171; J0690; J0735; J1170; J1200; J1885; J2250; J2274; J2405; J2710; J3010; J3370; J7120

== ENCOUNTER → 2016-09-30 | Outpatient (CLI) | payer MEDICARE, BC ==
[~2016-09-30] MED LIST: ASPI325T32 PO; OXYC-481 PO; PANT40TA4 PO; PREG50CA PO; TRAM50TA2 PO
--- NOTE | 2016-09-30 13:02 | HKNOTE ---
DATE OF SERVICE: 09/30/2016 INTERVAL HISTORY: The patient presents today for her first postoperative evaluation. She is 10 day s status post revision right total knee arthroplasty. She is doing excellent overall. She has very minimal pain and is ambulating without any assistive devices today. She states her knee is complet lynn straight. She is very happy with the outcome of her surgery thus far. She denies any fevers or chills. She is taking oxycodone and tramadol as needed for pain. Additionally, she is taking aspi rin twice daily for DVT prophylaxis. She presents today for her first postoperative evaluation. PHYSICAL EXAMINATION: Today, she is alert and oriented x4 and in no acute distress. She is ambulat ing without any assistive devices. Her leg alignment appears straight and anatomic. Range of motio n is 0 to 105 degrees. Her incision is clean, dry and intact. Linda are in place. There is no e rythema, warmth pus or drainage noted. Homans sign is negative. Neurovascular status is intact dis tally. Compartments are soft throughout. IMAGING: X-rays of the right knee were obtained today and reviewed by me. They demonstrate good an atomic alignment with no fractures or dislocation identified. ASSESSMENT: Ten days status post revision right total knee arthroplasty, doing very well overall. PLAN: The linda were removed today and Steri-Strips were applied. She is to continue with home h ealth and physical therapy and transition to outpatient physical therapy program. Additionally, she is taking aspirin twice daily for 6 weeks for DVT prophylaxis. The patient is to call the office i f she has any ongoing concerns, otherwise we will see her back in 4 weeks for repeat evaluation. Dictated By: HAMZAH SAN for BRYANT STOKES/YUMI Conf#: [id number] DID#: [id number]
--- NOTE | 2016-09-30 13:53 | RADRPT ---
PROCEDURE: XR right knee. CLINICAL INDICATION: Knee pain. TECHNIQUE: AP weightbearing, lateral weightbearing and sunrise views are available for review. COMPARISON: 09/17/2016 FINDINGS: There is a constrained total knee replacement with long tibial and femoral stems. There is no eviden ce of loosening of the prosthesis. There is no evidence of hardware failure. The osseous structures are normal in mineralization, architecture and alignment No acute fracture or dislocation is seen.No osseous lesions are identified. The soft tissues are unremarkable . IMPRESSION: Unremarkable constrained total knee replacement with long tibial and femoral stems. RPTAT: HGDB .Maximo Moy MD, MD Date Time Electronically viewed and signed by .Maximo Moy MD, MD on 09/30/2016 13:53 .B/
== END | disposition home or self-care (01) ==
LOC: HKI 09:44
PROVIDERS: ATTEND Orthopaedic Surgery
DX: Z47.1 Aftercare following joint replacement surgery (principal); Z96.651 Presence of right artificial knee joint

== ENCOUNTER → 2016-10-30 | Outpatient (CLI) | payer MEDICARE, BC | END | disposition home or self-care (01) | LOC: HKI 08:22 | PROVIDERS: ATTEND Orthopaedic Surgery | DX: Z47.1 Aftercare following joint replacement surgery (principal); T84.84XD Pain due to internal orthopedic prosthetic devices, implants and grafts, subsequent encounter; Y83.8 Other surgical procedures as the cause of abnormal reaction of the patient, or of later complication, without mention of misadventure at the time of the procedure; I10 Essential (primary) hypertension ==

== ENCOUNTER → 2016-12-11 | Outpatient (CLI) | payer MEDICARE, BC ==
--- NOTE | 2016-12-11 15:24 | RADRPT ---
PROCEDURE: Right knee radiographs. CLINICAL INDICATION: Right knee pain. Postop. TECHNIQUE: Three views. Weight bearing. Frontal, lateral, and patellar view. COMPARISON: 09/30/2016. FINDINGS: There is no fracture or dislocation. The soft tissues are normal. There is a total right knee and strain arthroplasty which appears satisfactory. There is no lytic or blastic lesion. There is no joint effusion. IMPRESSION: 1. Satisfactory postoperative appearance of the right knee. RPTAT: QQ .Jose D Interiano MD, Date Time Electronically viewed and signed by .Jose D Interiano MD, on 12/11/2016 15:24 .R/
== END | disposition home or self-care (01) ==
LOC: HKI 08:47
PROVIDERS: ATTEND Orthopaedic Surgery
DX: Z47.1 Aftercare following joint replacement surgery (principal); T84.092A Other mechanical complication of internal right knee prosthesis, initial encounter; T84.84XA Pain due to internal orthopedic prosthetic devices, implants and grafts, initial encounter; Z96.651 Presence of right artificial knee joint